=== PATIENT | male | born 1985 | race Caucasian/White ===

== ENCOUNTER 2017-05-28 03:00 | Emergency (ER) | payer SELFPAY ==
[2017-05-28] MEDS ORDERED: Ibuprofen 800 MG TAB ONE (03:32)
[2017-05-28] MEDS ORDERED: Clindamycin 150 MG CAP ONE (03:37)
[2017-05-28] MEDS ORDERED: Mupirocin 2% Ointment 22 GM Tube ONE ×2 (03:37→03:38)
== END 2017-05-28 04:06 | disposition home or self-care (01) ==
LOC: SCSER 03:00
DX: L03.114 Cellulitis of left upper limb (principal); B95.62 Methicillin resistant Staphylococcus aureus infection as the cause of diseases classified elsewhere; F17.210 Nicotine dependence, cigarettes, uncomplicated
CPT/HCPCS: 99283

== ENCOUNTER 2017-05-30 16:17 | Emergency (ER) | payer SELFPAY ==
[2017-05-30] MEDS ORDERED: Lidocaine 1% (PF) 30 ML VIAL ONE (16:56)
[2017-05-30 17:17] LABS: #Basophils 0.1 thou/uL (0.0-0.2); #Eosinphils 0.2 thou/uL (0.0-0.7); #Lymphocytes 1.9 thou/uL (1.20-3.40); #Neutrophils 9.8 thou/uL (1.40-6.50); %Basophils 0.7 % (0.0-1.0); %Eosinophils 1.7 % (0.0-10.0); %Lymphocytes 14.4 % (21.0-51.0); %Monocytes 7.4 % (0.0-10.0); Hematocrit 43.9 % (42.0-52.0); Mean Platelet Volume 6.9 fL (7.4-10.4); Red Blood Cell (RBC) Count 4.74 mill/uL (4.70-6.10); White Blood Cell (WBC) Count 12.9 thou/uL (4.8-10.8)
[2017-05-30 17:40] LABS: ALT (SGPT) 20 U/L (8-55); AST (SGOT) 16 U/L (5-34); Alkaline Phosphatase 87 U/L (40-150); Anion Gap 14 mmol/L (10-20); BUN (Urea Nitrogen) 15 mg/dL (8.9-20.6); Bilirubin, Total 0.4 mg/dL (0.2-1.2); Calc. Creatinine Clearance 0 mL/min (70-130); Calcium 9.3 mg/dL (7.8-10.44); Carbon Dioxide 29 mmol/L (22-29); Chloride 98 mmol/L (98-107); Estimated GFR-MDRD 65; Globulin 3.4 g/dL (2.4-3.5); Protein, Total 7.3 g/dL (6.0-8.3)
[2017-05-30] MEDS ORDERED: Morphine 4 MG/ML VIAL ONE (17:51)
[2017-05-30] MEDS ORDERED: cefTRIAXone\\ROCEPHIN 2 GM in Sodium Chloride 0.9% 100 ML IVPB SCH (18:00)
[2017-05-30] MEDS ORDERED: diphenhydrAMINE 50 MG/ML VIAL ONE (18:41)
== END 2017-05-30 19:40 | disposition home or self-care (01) ==
LOC: ERS 16:17
DX: L02.512 Cutaneous abscess of left hand (principal); L03.114 Cellulitis of left upper limb; F17.210 Nicotine dependence, cigarettes, uncomplicated
CPT/HCPCS: 10060; 36415; 80053; 83605; 85025; 87040; 96365; 96367; 96375; 99406; J0696; J1200; J2001; J2270; J3370; J7050